=== PATIENT | female | born 1975 | race Caucasian/White ===

== ENCOUNTER → 2018-03-03 | Outpatient (CLI) | payer BC ==
[~2018-03-03] MED LIST: CALCAVITDA; Excedrin Extra1 EACH PO; Hair, Skin & N1 EACH; IBUP800 PO; VENL37.5ER PO
[2018-03-04 09:54] LABS: Candida species (DNA Probe) Negative (NEGATIVE); G. vaginalis (DNA Probe) Negative (NEGATIVE); T. vaginalis (DNA Probe) Negative (NEGATIVE)
== END ==
LOC: LAB SHORT 16:11
PROVIDERS: Advanced Practice Midwife
DX: Z01.419 Encounter for gynecological examination (general) (routine) without abnormal findings (principal); N76.0 Acute vaginitis
CPT/HCPCS: 87480; 87510; 87660

== ENCOUNTER 2018-03-26 06:24 | Day surgery (SDC) | payer BC ==
[~2018-03-26] VITALS: Ht 160 cm; Wt 77.6 kg
== END 2018-03-26 10:19 | disposition home or self-care (01) ==
LOC: ORSCSDS 06:24
PROVIDERS: Obstetrics & Gynecology
PROC: 0UBMXZX Excision of Vulva, External Approach, Diagnostic (ICD-10-PCS; principal; 2018-03-26 07:30)
PROC: 0UT14ZZ Resection of Left Ovary, Percutaneous Endoscopic Approach (ICD-10-PCS; principal; 2018-03-26 07:30)
PROC: 0UDB8ZX Extraction of Endometrium, Via Natural or Artificial Opening Endoscopic, Diagnostic (ICD-10-PCS; principal; 2018-03-26 07:30)
PROC: 0UT64ZZ Resection of Left Fallopian Tube, Percutaneous Endoscopic Approach (ICD-10-PCS; principal; 2018-03-26 07:30)
DX: N92.0 Excessive and frequent menstruation with regular cycle (principal); N83.292 Other ovarian cyst, left side; N90.7 Vulvar cyst; N80.3 Endometriosis of pelvic peritoneum; K66.0 Peritoneal adhesions (postprocedural) (postinfection); K21.9 Gastro-esophageal reflux disease without esophagitis; F17.210 Nicotine dependence, cigarettes, uncomplicated; Z79.899 Other long term (current) drug therapy
CPT/HCPCS: J0171; J1100; J1885; J2250; J2405; J2710; J3010

== ENCOUNTER 2018-06-03 17:11 | Emergency (ER) | payer BC ==
[~2018-06-03] VITALS: Ht 160 cm; Wt 63.5 kg
[~2018-06-03 17:11] MED LIST changes: -CYCL10 PO; -DIAZ2 PO
[2018-06-03] MEDS ORDERED: CYCL10 PO (20:15)
[2018-06-03] MEDS ORDERED: DIAZ2 PO (20:15)
== END 2018-06-04 01:00 | disposition home or self-care (01) ==
LOC: ER 17:11
DX: S29.012A Strain of muscle and tendon of back wall of thorax, initial encounter (principal); J90 Pleural effusion, not elsewhere classified; X58.XXXA Exposure to other specified factors, initial encounter; Z88.5 Allergy status to narcotic agent; Z88.8 Allergy status to other drugs, medicaments and biological substances; Z79.899 Other long term (current) drug therapy; Z79.82 Long term (current) use of aspirin; F17.200 Nicotine dependence, unspecified, uncomplicated
CPT/HCPCS: 36415; 71046; 71260; 84484; 93005; 93010; 96374; 96375; 99285-25; J1885; J3010; Q9967

== ENCOUNTER → 2018-06-03 | Outpatient (CLI) | payer BC ==
[~2018-06-03] MED LIST changes: +CYCL10 PO; +DIAZ2 PO
[2018-06-03 14:23] LABS: BASOPHILS ABSOLUTE AUTO 0.04 K/mm3 (0.00-0.23); BASOPHILS PERCENT AUTO 1 % (0-2); EOSINOPHILS ABSOLUTE AUTO 0.01 K/mm3 (0.00-0.68); EOSINOPHILS PERCENT AUTO 0 % (0-6); Hematocrit 45.1 % (33.0-51.0); Hemoglobin 14.5 g/dL (11.5-16.0); IMMATURE GRAN ABSOLUTE AUTO 0.02 K/mm3 (0.00-0.10); IMMATURE GRAN PERCENT AUTO 0 % (0-1); LYMPHOCYTES ABSOLUTE AUTO 2.46 K/mm3 (0.84-5.20); LYMPHOCYTES PERCENT AUTO 30 % (21-46); MONOCYTES ABSOLUTE AUTO 0.49 K/mm3 (0.16-1.47); MONOCYTES PERCENT AUTO 6 % (4-13); Mean Corpuscular HGB 28.9 pg (26.0-34.0); Mean Corpuscular HGB Conc 32.2 g/dL (31.5-36.5); Mean Corpuscular Volume 90 fL (80-100); Mean Platelet Volume 9.7 fL (9.1-12.4); NEUTROPHILS ABSOLUTE AUTO 5.19 K/mm3 (1.96-9.15); NEUTROPHILS PERCENT AUTO 63 % (41-73); Platelet Count 321 K/mm3 (150-400); RDW Coefficient Variation 14.4 % (11.7-14.2); RDW Standard Deviation 47.3 fL (35.1-46.3); Red Blood Cell Count 5.01 M/mm3 (3.80-5.20); White Blood Cell Count 8.21 K/mm3 (4.00-11.30)
[2018-06-03 14:36] LABS: Alanine Aminotransfer (ALT/SGP 22 U/L (12-78); Albumin, Blood 4.3 g/dL (3.4-5.0); Albumin/Globulin Ratio 1.2 (0.8-1.8); Alk Phos 67 U/L (50-136); Anion Gap 6 mmol/L (6-16); Aspartate Aminotrans (AST/SGOT 14 U/L (12-37); Bilirubin, Total 0.5 mg/dL (0.1-1.0); Blood Urea Nitrogen 17 mg/dL (8-24); CO2, Blood 26 mmol/L (21-32); Chloride, Blood 105 mmol/L (98-108); Creatinine, Blood 0.81 mg/dL (0.40-1.00); Globulin, Blood 3.6 g/dL (2.2-4.0); Glomerular Filtration Rate >60 (60-); Glucose, Blood 93 mg/dL (70-99); Magnesium, Blood 2.1 mg/dL (1.6-2.4); Potassium, Blood 4.2 mmol/L (3.5-5.5); Sodium, Blood 137 mmol/L (136-145); Total Protein, Blood 7.9 g/dL (6.4-8.2)
== END ==
LOC: LAB SHORT 13:14 → LAB 13:14
PROVIDERS: Family Medicine
DX: R53.83 Other fatigue (principal)
CPT/HCPCS: 80053; 83735; 85025

== ENCOUNTER → 2019-01-29 | Outpatient (CLI) | payer BC ==
[~2019-01-29] MED LIST changes: +CYCL10 PO; +DIAZ2 PO
[2019-01-29 14:52] LABS: Candida species (DNA Probe) Negative (NEGATIVE); G. vaginalis (DNA Probe) Positive (NEGATIVE); T. vaginalis (DNA Probe) Negative (NEGATIVE)
== END | disposition home or self-care (01) ==
LOC: LAB SHORT 10:36 → LAB 10:36
PROVIDERS: Obstetrics & Gynecology
DX: N76.0 Acute vaginitis (principal)
CPT/HCPCS: 87480; 87510; 87660

== ENCOUNTER → 2019-05-19 | Outpatient (CLI) | payer BC ==
[2019-05-21 15:07] LABS: HPV 16 Negative (Negative); HPV 18 Negative (Negative); HPV OTHER HR TYPES Negative (Negative)
== END | disposition home or self-care (01) ==
LOC: LAB 13:44 → LAB SHORT 13:44
PROVIDERS: Nurse Practitioner Women's Health
DX: Z12.4 Encounter for screening for malignant neoplasm of cervix (principal); Z91.89 Other specified personal risk factors, not elsewhere classified
CPT/HCPCS: 87624; G0123

== ENCOUNTER 2019-09-02 06:01 | Day surgery (SDC) | payer BC ==
[2019-08-31 11:57] LABS: BASOPHILS ABSOLUTE AUTO 0.03 K/mm3 (0.00-0.23); BASOPHILS PERCENT AUTO 0 % (0-2); EOSINOPHILS ABSOLUTE AUTO 0.04 K/mm3 (0.00-0.68); EOSINOPHILS PERCENT AUTO 1 % (0-6); Hematocrit 39.9 % (33.0-51.0); Hemoglobin 12.8 g/dL (11.5-16.0); IMMATURE GRAN ABSOLUTE AUTO 0.02 K/mm3 (0.00-0.10); IMMATURE GRAN PERCENT AUTO 0 % (0-1); LYMPHOCYTES ABSOLUTE AUTO 2.03 K/mm3 (0.84-5.20); LYMPHOCYTES PERCENT AUTO 25 % (21-46); MONOCYTES ABSOLUTE AUTO 0.47 K/mm3 (0.16-1.47); MONOCYTES PERCENT AUTO 6 % (4-13); Mean Corpuscular HGB 29.6 pg (26.0-34.0); Mean Corpuscular HGB Conc 32.1 g/dL (31.5-36.5); Mean Corpuscular Volume 92 fL (80-100); Mean Platelet Volume 10.4 fL (9.1-12.4); NEUTROPHILS ABSOLUTE AUTO 5.55 K/mm3 (1.96-9.15); NEUTROPHILS PERCENT AUTO 68 % (41-73); Platelet Count 283 K/mm3 (150-400); RDW Coefficient Variation 14.4 % (11.7-14.2); RDW Standard Deviation 48.8 fL (35.1-46.3); Red Blood Cell Count 4.33 M/mm3 (3.80-5.20); White Blood Cell Count 8.14 K/mm3 (4.00-11.30)
[2019-08-31 12:18] LABS: Beta HCG, Quantitative, Serum <1 mIU/mL (0-3)
[2019-08-31 12:21] LABS: Anion Gap 6 mmol/L (6-16); Blood Urea Nitrogen 16 mg/dL (8-24); Bun/Creatinine Ratio 22.4 (12.0-20.0); CO2, Blood 26 mmol/L (21-32); Calcium, Blood 8.4 mg/dL (8.5-10.1); Chloride, Blood 108 mmol/L (98-108); Creatinine, Blood 0.72 mg/dL (0.40-1.00); Glomerular Filtration Rate >60 (60-); Glucose, Blood 81 mg/dL (70-99); Potassium, Blood 3.8 mmol/L (3.5-5.5); Sodium, Blood 140 mmol/L (136-145)
[~2019-09-02] VITALS: Ht 160 cm; Wt 75.4 kg
[~2019-09-02 06:01] MED LIST changes: +DAILYVITE PO; +DHEA PO; +Lexapro 2020 MG PO; +PROG100 PO
--- NOTE | 2019-09-02 06:43 | NUR ---
PT ADMITTED TO [facility]. AGREES WITH PLANNED SURGERY. LUNG SOUNDS CLEAR.
--- NOTE | 2019-09-02 12:11 | NUR ---
ADMIT TO SURGICAL FLOOR PT ARRIVED TO UNIT FROM OR AT 1150 TODAY. A/OX4 W/VSS; SPO2 AT 98% ON 2L NC. NO VAGINAL BLEEDING NOTED AT THIS TIME. GILBERT CATH IN PLACE, PATENT, AND DRAINING CLEAR/YELLOW URINE. TOLERATING SIPS OF WATER AND CRACKERS. RATES PAIN 8/10 WITH 1/10 BEING TOLERABLE. WILL MEDICATE PER ORDERS. CURRENTLY ALERT WHILE RESTING IN BED WITH PAS IN PLACE AND CALL LIGHT WITHIN REACH.
[2019-09-02] MEDS ORDERED: Apple Cider Vi300 MG PO (13:48)
--- NOTE | 2019-09-02 17:08 | NUR ---
SHIFT SUMMARY POD 0 S/P LAVH. PT A/O WITH VSS. NO VAGINAL BLEEDING NOTED. ABD DRESSING C/D/I. GILBERT PATENT AND DRAINING YELLOW URINE. PAIN MANAGED WITH PO AND 1X IV MED. IVF AND ABX PER ORDERS. PAS TO BLE IN PLACE. TOLERATING CL AND CRACKERS. CURRENTLY RESTING IN BED WITH CALL LIGHT IN REACH. WILL MONITOR FOR CHANGES AND GIVE REPORT TO ONCOMING NURSE.
--- NOTE | 2019-09-02 21:00 | NUR ---
NO DRAINAGE DURING ASSESSMENT. PAD IS DRY
--- NOTE | 2019-09-03 01:46 | NUR ---
pain CALLED DR ARRIOLA RELATED TO PATIENTS PAIN. RATED AT 9/10 AFTER RECEIVING FENTANYL PER EMAR. NEW ORDERS GIVEN FOR TORODOL, CHANGED DOSING FOR FENTANYL AND GAS X RECEIVED. WILL ADMINISTER PER EMAR AND MONITOR PATIENT FOR EFFECT.
--- NOTE | 2019-09-03 04:18 | NUR ---
SHIFT SUMMARY POD 1 LAP VAG HYSTER WITH SO PT [id number]. BP HAS BEEN IN THE 90'S DURING SHIFT. PATIENT DOESNT REPORT FEELING DIZZY OR LIGHT HEADED. STATED HER VISION WAS BLURY BUT HER GLASSES FIXED THAT. PAIN HAS BEEN DIFFICULT TO CONTROL. 9/10 DURING THE EARLY PART OF THE SHIFT MEDICATED PER EMAR TO LITTLE EFFECT. NEW ORDERS FOR TORODOL AND MORE FREQUENT PAIN MEDS RECEIVED AND PAIN IS DOWN TO A 6/10 PATIENT IS NO LONGER GRIMACING. PT HAS NOT BEEN UP TO AMBULATE R/T TO PAIN. GILBERT IS STILL IN PLACE PATENT AND DRAINING. PLAN IS TO AMBULATE ONCE PAIN IS STABLE. NO DRAINAGE ON PAD DURING SHIFT. LAP SITES CDI WITH GAUZE.
[2019-09-03 04:51] LABS: BASOPHILS ABSOLUTE AUTO 0.02 K/mm3 (0.00-0.23); BASOPHILS PERCENT AUTO 0 % (0-2); EOSINOPHILS ABSOLUTE AUTO 0.02 K/mm3 (0.00-0.68); EOSINOPHILS PERCENT AUTO 0 % (0-6); Hematocrit 34.6 % (33.0-51.0); Hemoglobin 10.7 g/dL (11.5-16.0); IMMATURE GRAN ABSOLUTE AUTO 0.03 K/mm3 (0.00-0.10); IMMATURE GRAN PERCENT AUTO 0 % (0-1); LYMPHOCYTES ABSOLUTE AUTO 2.18 K/mm3 (0.84-5.20); LYMPHOCYTES PERCENT AUTO 20 % (21-46); MONOCYTES ABSOLUTE AUTO 0.78 K/mm3 (0.16-1.47); MONOCYTES PERCENT AUTO 7 % (4-13); Mean Corpuscular HGB Conc 30.9 g/dL (31.5-36.5); Mean Corpuscular Volume 94 fL (80-100); Mean Platelet Volume 10.2 fL (9.1-12.4); NEUTROPHILS ABSOLUTE AUTO 7.76 K/mm3 (1.96-9.15); NEUTROPHILS PERCENT AUTO 72 % (41-73); Platelet Count 229 K/mm3 (150-400); RDW Coefficient Variation 14.6 % (11.7-14.2); RDW Standard Deviation 50.1 fL (35.1-46.3); Red Blood Cell Count 3.69 M/mm3 (3.80-5.20); White Blood Cell Count 10.79 K/mm3 (4.00-11.30)
--- NOTE | 2019-09-03 05:46 | NUR ---
PT STOOD AT SIDE OF BED. TOLERATED WELL PAIN REPORTED AT 5/10 AFTER. ENCOURAGED PT TO TAKE A FEW STEPS BUT WAS UNSUCCESSFUL
--- NOTE | 2019-09-03 06:19 | NUR ---
GILBERT REMOVED AT 0619. PT TOLERATED WELL
--- NOTE | 2019-09-03 18:49 | NUR ---
SHIFT SUMMARY PT HAS BEEN UP SEVERAL TIMES TO WALK THE HALLWAY. DRESSINGS ON ABD CDI. PAIN MANAGED WITH PAIN MED PER ORDERS. PT TOLERATING PO FOOD AND FLUIDS. ASSISTED WTIH ADL'S PRN.
--- NOTE | 2019-09-04 05:09 | NUR ---
SHIFT SUMMARY THIS PATIENT WAS MEDICATED THROUGHOUT THE NIGHT WITH IV AND PO MEDICATIONS FOR LOW ABDOMINAL PAIN. DRESSINGS ON ABDOMEN REMAINED CLEAN AND DRY. PATIENT IS VOIDING WELL, NO BLOOD ON PERIPAD. UP TO BR WITH ONE PERSON STAND BY ASSIST. SHE DID NEED ASSISTANCE WITH GETTING IN AND OUT OF BED.
[2019-09-04] MEDS ORDERED: DOCU100 PO (13:58)
[2019-09-04] MEDS ORDERED: MILK OF MA400 MG/5 M PO (13:59)
[2019-09-04] MEDS ORDERED: PERCOCET 10-321 EACH PO (14:00)
[2019-09-04] MEDS ORDERED: ESTR2 PO (14:00)
[2019-09-04] MEDS ORDERED: PROM25 PO (14:01)
--- NOTE | 2019-09-04 15:16 | NUR ---
DISCHARGE PT GIVEN SCRIPT, OTHERS CALLED IN TO PHARMACY OF CHOICE ([facility]), UNDERSTANDS DISCHARGE INSTRUCTIONS. REPORTS PAIN IS MANAGEABLE. TOLERATING DIET, VOIDING, PASSING GAS.
[2019-09-08] MEDS ORDERED: OXYC1TAB11 PO (15:34)
[2019-09-08] MEDS ORDERED: Colace100 MG PO (18:44)
== END 2019-09-04 15:18 | disposition home or self-care (01) ==
LOC: ORSCMMR 06:01 → ORD 07:30 → SURS 11:44 → ORSCMMR 09-04 15:18
PROVIDERS: Obstetrics & Gynecology
DX: N80.3 Endometriosis of pelvic peritoneum (principal); N92.1 Excessive and frequent menstruation with irregular cycle; N94.6 Dysmenorrhea, unspecified; N94.10 Unspecified dyspareunia; N83.11 Corpus luteum cyst of right ovary; N70.11 Chronic salpingitis; R10.2 Pelvic and perineal pain; K21.9 Gastro-esophageal reflux disease without esophagitis; F17.210 Nicotine dependence, cigarettes, uncomplicated; Z79.899 Other long term (current) drug therapy; Z79.82 Long term (current) use of aspirin
CPT/HCPCS: 58552; S2900; 36415; 80048; 84702; 85025; 86850; 86900; 86901; 88307; J0690; J1100; J1170; J1885; J2250; J2370; J2405; J2550; J2704; J2710; J3010; J7030; J7120

== ENCOUNTER 2019-12-23 06:49 | Day surgery (SDC) | payer BC ==
[~2019-12-23] VITALS: Ht 160 cm; Wt 76.0 kg
[~2019-12-23 06:49] MED LIST changes: +Apple Cider Vi300 MG PO; +Aygestin5 MG PO; +Bentyl20 MG PO; +COLON CLENZ PO; +Colace100 MG PO; +DHEA 10 MG TAB1 EACH PO; +DOCU100 PO; +DULCOLAX STOOL100 MG PO; +ESCI20 PO; +ESTR2 PO; +LINZESS145 MCG PO; +MILK OF MA400 MG/5 M PO; +OXYC1TAB11 PO; +PERCOCET 10-321 EACH PO; +PROGESTERONE200 M1 PO; +PROM25 PO; +TRAM50 PO; +VITAMIN D35000 UNI2 PO
== END 2019-12-23 09:30 | disposition home or self-care (01) ==
LOC: ORSCSDS 06:49
PROVIDERS: Student in an Organized Health Care Education/Training Program
PROC: 0DBL8ZX Excision of Transverse Colon, Via Natural or Artificial Opening Endoscopic, Diagnostic (ICD-10-PCS; principal; 2019-12-23 08:00)
PROC: 0DBN8ZX Excision of Sigmoid Colon, Via Natural or Artificial Opening Endoscopic, Diagnostic (ICD-10-PCS; principal; 2019-12-23 08:00)
DX: K92.1 Melena (principal); R15.0 Incomplete defecation; D12.3 Benign neoplasm of transverse colon; K63.5 Polyp of colon; K57.30 Diverticulosis of large intestine without perforation or abscess without bleeding; K64.8 Other hemorrhoids; F17.210 Nicotine dependence, cigarettes, uncomplicated
CPT/HCPCS: 88305; J2405; J2704; J7120